=== PATIENT | female | born 1975 | race Caucasian/White ===

== ENCOUNTER 2016-08-29 05:48 | Emergency (ER) | payer OTHER ==
--- NOTE | 2016-08-29 05:54 | ED.PDOC ---
History of Present Illness - General Chief Complaint: Cardiovascular Problem Stated Complaint: high blood pressure Time Seen by Provider: 08/29/16 05:54 Source: patient Exam Limitations: no limitations - History of Present Illness Initial Comments: Ms. Mayra Núñez 40 y/o female under police custody was brought to [facility] ER by special police officer after stating that she has high blood pressure.She has history of KAT,high blood pressure.She stated she is more anxious now had not taken her am dose of her medications. Timing/Duration: 1 hour Severity: moderate Improving Factors: nothing Worsening Factors: nothing Associated Symptoms: denies symptoms Allergies/Adverse Reactions: Allergies Clonazepam Allergy (Verified 08/29/16 06:02) Codeine Allergy (Verified 08/29/16 06:02) Hydrocodone Allergy (Verified 08/29/16 06:02) opioid Allergy (Uncoded 08/29/16 06:02) Review of Systems - Review of Systems Constitutional: States: no symptoms reported EENTM: States: no symptoms reported Respiratory: States: no symptoms reported Cardiology: States: no symptoms reported Gastrointestinal/Abdominal: States: no symptoms reported Genitourinary: States: no symptoms reported Musculoskeletal: States: no symptoms reported Skin: States: no symptoms reported Neurological: States: no symptoms reported Past Medical History (General) - Patient Medical History Hx Hypertension: Yes Hx Other PMH: Yes - bipolar Surgical History: other - hysterectomy - Social History Hx Alcohol Use: Yes - Activities of Daily Living Patient Lives Alone: No - family Family Medical History - Family History Mother Living Status: Hx Family Cancer: Yes Physical Exam - Physical Exam General Appearance: Alert, Anxious, No apparent distress Eye Exam: bilateral normal Ears, Nose, Throat: hearing grossly normal, normal ENT inspection, normal pharynx Neck: non-tender, full range of motion Respiratory: chest non-tender, lungs clear, normal breath sounds Cardiovascular/Chest: normal peripheral pulses, regular rate, rhythm, no murmur Peripheral Pulses: radial,right: 2+, radial,left: 2+ Gastrointestinal/Abdominal: normal bowel sounds, non tender, soft, no organomegaly Back Exam: normal inspection, no CVA tenderness, no vertebral tenderness Extremity: normal range of motion, non-tender, normal inspection, no calf tenderness Neurologic: no motor/sensory deficits, alert, normal mood/affect, oriented x 3 Skin Exam: normal color, warm/dry Lymphatic: no adenopathy Progress - Results/Orders Results/Orders: Vital Signs - 8 hr 08/29/16 08/29/16 05:48 06:22 Temperature 96.8 F L Pulse Rate [ 101 H 110 H monitor] Respiratory 20 Rate Blood Pressure 163/113 153/103 [Left Arm] O2 Sat by Pulse 100 100 Oximetry Laboratory Results Urine Color Yellow (Yellow) 08/29/16 06:35 Urine Appearance Cloudy (Clear) H 08/29/16 06:35 Urine pH 5.0 (4.5-7.8) 08/29/16 06:35 Ur Specific [place] >= 1.030 (1.005-1.030) 08/29/16 06:35 Urine Protein Trace mg/dL 08/29/16 06:35 Urine Glucose (UA) Negative mg/dL (Negative) 08/29/16 06:35 Urine Ketones Trace mg/dL (NEGATIVE) 08/29/16 06:35 Urine Blood Trace-intact (Negative) H 08/29/16 06:35 Urine Nitrite Negative 08/29/16 06:35 Urine Bilirubin Negative (NEGATIVE) 08/29/16 06:35 Urine Urobilinogen 0.2 mg/dL (0.2-1.0) 08/29/16 06:35 Ur Leukocyte Esterase Negative (Negative) 08/29/16 06:35 Urine RBC 0-1 /hpf 08/29/16 06:35 Urine WBC 0-1 /hpf 08/29/16 06:35 Ur Epithelial Cells 0-1 /hpf 08/29/16 06:35 Amorphous Sediment 2+ 08/29/16 06:35 Urine Bacteria 1+ 08/29/16 06:35 Urine Opiates Screen Negative ng/mL (2000) 08/29/16 06:35 Urine Barbiturates Negative ng/mL (200) 08/29/16 06:35 Ur Phencyclidine Scrn Negative ng/mL (25) 08/29/16 06:35 U Amphetamin/Meth Scrn Positive ng/mL (1000) H 08/29/16 06:35 U Benzodiazepines Scrn Positive ng/mL (200) H 08/29/16 06:35 U Cocaine Metab Screen Negative ng/mL (300) 08/29/16 06:35 U Cannabinoids Screen Negative ng/mL (50) 08/29/16 06:35 Departure - Departure Clinical Impression: Positive urine drug screen Hypertension Qualifiers: Hypertension type: essential hypertension Qualified Code(s): I10 - Essential ( primary) hypertension Time of Disposition: 06:59 - Release under police custody Disposition: [facility] Condition: Good Departure Forms: ED Discharge - Pt. Copy, Patient Portal Self Enrollment Diet: low salt diet Additional Instructions: Continue with all home medications in [facility]
[2016-08-29 06:00] VITALS: TEMP 96.8; O2SAT 100
[2016-08-29] MEDS ORDERED: METOPROLOL TARTRATE 50 MG TAB PO ONE (06:15)
[2016-08-29] MEDS ORDERED: LISINOPRIL 10 MG TAB PO ONE (06:21)
[2016-08-29 07:02] VITALS: BP 166/99
== END 2016-08-29 07:08 ==
LOC: ER 05:48
DX: I10 Essential (primary) hypertension (principal); R82.5 Elevated urine levels of drugs, medicaments and biological substances; F31.9 Bipolar disorder, unspecified; Z79.899 Other long term (current) drug therapy; Z88.6 Allergy status to analgesic agent; Z88.8 Allergy status to other drugs, medicaments and biological substances